=== PATIENT | female | born 1940 | race African-American/Black ===

== ENCOUNTER 2021-02-13 15:52 | Inpatient (IN) | payer MEDICARE, MEDICAID ==
[~2021-02-13] VITALS: Ht 172.7 cm; Wt 99.3 kg
[2021-02-13] MEDS ORDERED: MORPHINE SULFATE 4 MG/ML CPJ (NOT FOR IM USE) IV STA (20:14)
[2021-02-13] MEDS ORDERED: ONDANSETRON HCL 4MG/2ML INJ IV STA (20:14)
[2021-02-13] MEDS ORDERED: SODIUM CHLORIDE 0.9% 1,000 ML IV ONE (20:15)
[2021-02-13 21:42] LABS: BASOPHILS % 0.3 % (0.0-2.0); HEMATOCRIT. 38.8 % (36.0-48.0); LYMPHOCYTES % 14.9 % (20.0-50.0); MEAN CORPUSCULAR HEMOGLOBIN 28.6 pg (28.0-32.0); MEAN CORPUSCULAR VOLUME 85.7 fL (81.0-99.0); MEAN PLATELET VOLUME 7.9 fl (7.4-10.4); MONOCYTES % 12.2 % (2.0-8.0); NEUTROPHILS % 70.6 % (40.0-76.0); PLATELET 358 x1000/uL (130-400); RED BLOOD CELL COUNT 4.53 mill/uL (4.2-5.4); RED CELL DISTRIBUTION WIDTH 13.5 % (11.6-14.6)
[2021-02-13 21:43] LABS: CLARITY URINE CLEAR (CLEAR); COLOR URINE DARK YELLOW (YELLOW); KETONES URINE TRACE (NEGATIVE); LEUKOCYTE ESTERASE URINE 1+ (NEGATIVE); NITRITE URINE NEGATIVE (NEGATIVE); OCCULT BLOOD URINE NEGATIVE (NEGATIVE); PROTEIN URINE 2+ (NEGATIVE); SPECIFIC GRAVITY URINE 1.018 (1.005-1.030)
[2021-02-13 21:47] LABS: CHLORIDE 98 mEq/L (98-107)
[2021-02-13] MEDS ORDERED: MORPHINE SULFATE 2 MG/ML CPJ (NOT FOR IM USE) IV STA (21:48)
[2021-02-13 21:51] LABS: INR 1.1; PROTHROMBIN TIME 11.3 sec (9.6-11.0)
[2021-02-13] MEDS ORDERED: CEFTRIAXONE 1 G PREMIX 50 ML IV SCH (23:15)
[2021-02-14] MEDS ORDERED: ENOXAPARIN 80MG/0.8ML SYR SUBCUT SCH (00:15)
[2021-02-14 09:20] VITALS: BP 138/63
[2021-02-14] MEDS ORDERED: HYDROCODONE/ACETAMINOPHEN 5/325MG TABLET PO PRN (09:45)
[2021-02-14] MEDS ORDERED: MAGNESIUM/ALUMINUM HYDROXIDE/SIMETHICONE 30ML UDC PO PRN (09:45)
[2021-02-14] MEDS ORDERED: CLONIDINE 0.1MG TABLET PO PRN (09:45)
[2021-02-14] MEDS ORDERED: IPRATROPIUM/ALBUTEROL 0.5-3(2.5)MG/3ML NEB HHN PRN (09:45)
[2021-02-14] MEDS ORDERED: DOCUSATE SODIUM 100MG CAPSULE PO PRN (09:45)
[2021-02-14] MEDS ORDERED: ACETAMINOPHEN 325MG TABLET PO PRN (09:45)
[2021-02-14 12:00] VITALS: BP 158/56
[2021-02-14] MEDS ORDERED: CEFTRIAXONE 1,000 MG in DEXTROSE 5% WATER 50 ML IV SCH (12:00)
[2021-02-14] MEDS: OMEPRAZOLE 20MG CAPSULE EXTENDED RELEASE PO SCH (13:14)
[2021-02-14] MEDS: ONDANSETRON HCL 4MG/2ML INJ IV PRN (14:03)
[2021-02-14 16:00] VITALS: BP 121/55
[2021-02-14 20:00] VITALS: BP 143/71
[2021-02-14] MEDS: ENOXAPARIN 80MG/0.8ML SYR SUBCUT SCH (21:05)
[2021-02-14 21:51] LABS: CLARITY URINE CLEAR (CLEAR); COLOR URINE DARK YELLOW (YELLOW); KETONES URINE TRACE (NEGATIVE); LEUKOCYTE ESTERASE URINE TRACE (NEGATIVE); NITRITE URINE NEGATIVE (NEGATIVE); OCCULT BLOOD URINE NEGATIVE (NEGATIVE); PH URINE 5.5 (4.5-8.0); PROTEIN URINE 2+ (NEGATIVE); SPECIFIC GRAVITY URINE 1.027 (1.005-1.030)
[2021-02-15] VITALS: BP 114/63
[2021-02-15 04:00] VITALS: BP 158/56
[2021-02-15] MEDS: OMEPRAZOLE 20MG CAPSULE EXTENDED RELEASE PO SCH (06:23)
[2021-02-15 06:57] LABS: CHLORIDE 99 mEq/L (98-107)
[2021-02-15 07:08] LABS: LDL CHOLESTEROL 92 mg/dL (5-100); PHOSPHORUS 3.2 mg/dL (2.5-4.9)
[2021-02-15 07:09] LABS: HDL CHOLESTEROL 46 mg/dL (40-59)
[2021-02-15 07:32] LABS: BASOPHILS % 0.4 % (0.0-2.0); EOSINOPHILS % 1.7 % (0.0-5.0); LYMPHOCYTES % 12.6 % (20.0-50.0); MEAN CORPUSCULAR HEMOGLOBIN 27.8 pg (28.0-32.0); MEAN CORPUSCULAR VOLUME 86.1 fL (81.0-99.0); MEAN PLATELET VOLUME 8.5 fl (7.4-10.4); MONOCYTES % 12.6 % (2.0-8.0); NEUTROPHILS % 72.7 % (40.0-76.0); PLATELET 331 x1000/uL (130-400); RED BLOOD CELL COUNT 3.95 mill/uL (4.2-5.4); RED CELL DISTRIBUTION WIDTH 13.2 % (11.6-14.6)
[2021-02-15 08:00] VITALS: BP 124/83
[2021-02-15] MEDS ORDERED: ENOXAPARIN 40MG/0.4ML SYR SUBCUT SCH (09:00)
[2021-02-15] MEDS: ENOXAPARIN 80MG/0.8ML SYR SUBCUT SCH ×2 (09:09→20:56)
[2021-02-15 10:47] LABS: BG BASE EXCESS 4.1 mmol/L (-2.0-2.0); BG CARBOXYHEMOGLOBIN 0.7 % (0.5-1.5); BG DEOXYHEMOGLOBIN 10.8 % (0.0-5.0); BG FRACTION INSPIRED OXYGEN 21; BG METHEMOGLOBIN 0.3 % (0.0-1.5); BG OXYGEN SATURATION 89.1 % (92.0-98.5); BG OXYHEMOGLOBIN 88.2 % (94.0-97.0); BG PCO2 39.6 mmHg (35.0-45.0); BG PH 7.468 (7.350-7.450); BG PO2 55.4 mmHg (75.0-100.0); BG SAMPLE SITE LEFT BRACHIAL; BG TOTAL HEMOGLOBIN 11.9 g/dL (12.0-18.0); BG VENT MODE ROOM AIR
[2021-02-15 12:00] VITALS: BP 135/61
[2021-02-15] MEDS: ONDANSETRON HCL 4MG/2ML INJ IV PRN (13:32)
[2021-02-15] MEDS: CEFTRIAXONE 1,000 MG in DEXTROSE 5% WATER 50 ML IV SCH (13:32)
[2021-02-15 16:00] VITALS: BP 143/70
[2021-02-15] MEDS ORDERED: LACTULOSE 20G/30ML UDC PO NR (17:00)
[2021-02-15] MEDS ORDERED: NALOXONE HCL 0.4MG/ML VIAL IV PRN (17:15)
[2021-02-15 20:00] VITALS: BP 144/62
[2021-02-16] VITALS: BP 128/65
[2021-02-16 04:00] VITALS: BP 147/62
[2021-02-16] MEDS: OMEPRAZOLE 20MG CAPSULE EXTENDED RELEASE PO SCH (06:21)
[2021-02-16 07:25] LABS: BASOPHILS % 0.4 % (0.0-2.0); EOSINOPHILS % 1.3 % (0.0-5.0); HEMATOCRIT. 35.4 % (36.0-48.0); HEMOGLOBIN. 11.7 g/dL (12.0-16.0); LYMPHOCYTES % 11.6 % (20.0-50.0); MEAN CORPUSCULAR HEMOGLOBIN 28.5 pg (28.0-32.0); MEAN CORPUSCULAR VOLUME 85.9 fL (81.0-99.0); MEAN PLATELET VOLUME 8.7 fl (7.4-10.4); MONOCYTES % 13.1 % (2.0-8.0); NEUTROPHILS % 73.6 % (40.0-76.0); PLATELET 340 x1000/uL (130-400); RED BLOOD CELL COUNT 4.12 mill/uL (4.2-5.4); RED CELL DISTRIBUTION WIDTH 13.3 % (11.6-14.6)
[2021-02-16 07:27] LABS: CHLORIDE 98 mEq/L (98-107)
[2021-02-16 08:19] VITALS: BP 147/64
[2021-02-16] MEDS: ENOXAPARIN 80MG/0.8ML SYR SUBCUT SCH (09:57)
[2021-02-16] MEDS: DOCUSATE SODIUM 100MG CAPSULE PO SCH (09:57)
[2021-02-16 11:56] VITALS: BP 132/74
[2021-02-16] MEDS: CEFTRIAXONE 1,000 MG in DEXTROSE 5% WATER 50 ML IV SCH (13:21)
[2021-02-16] MEDS: ONDANSETRON HCL 4MG/2ML INJ IV PRN (13:21)
[2021-02-16 16:00] VITALS: BP 132/74
[2021-02-16 20:00] VITALS: BP 131/78
[2021-02-16] MEDS: FAMOTIDINE 20MG TABLET PO SCH (21:08)
[2021-02-16] MEDS: ENOXAPARIN 100MG/ML SYR SUBCUT SCH (21:08)
[2021-02-16] MEDS ORDERED: METHIMAZOLE 5MG TABLET PO SCH (23:00)
[2021-02-17] VITALS: BP 118/62
[2021-02-17 04:00] VITALS: BP 142/61
[2021-02-17 07:19] LABS: BASOPHILS % 0.3 % (0.0-2.0); EOSINOPHILS % 1.6 % (0.0-5.0); HEMATOCRIT. 36.2 % (36.0-48.0); HEMOGLOBIN. 11.8 g/dL (12.0-16.0); LYMPHOCYTES % 11.1 % (20.0-50.0); MEAN CORPUSCULAR HEMOGLOBIN 27.8 pg (28.0-32.0); MEAN CORPUSCULAR VOLUME 85.3 fL (81.0-99.0); MEAN PLATELET VOLUME 8.1 fl (7.4-10.4); MONOCYTES % 14.4 % (2.0-8.0); NEUTROPHILS % 72.6 % (40.0-76.0); PLATELET 392 x1000/uL (130-400); RED BLOOD CELL COUNT 4.24 mill/uL (4.2-5.4); RED CELL DISTRIBUTION WIDTH 13.7 % (11.6-14.6)
[2021-02-17 07:27] LABS: CHLORIDE 95 mEq/L (98-107)
[2021-02-17 07:44] LABS: CORTISOL 35.8 ucg/dL
[2021-02-17 07:57] LABS: VITAMIN B12 SERUM > 2000.0 pg/mL (211-911)
[2021-02-17 08:00] VITALS: BP 140/63
[2021-02-17] MEDS: FAMOTIDINE 20MG TABLET PO SCH ×2 (08:40→21:05)
[2021-02-17] MEDS: DOCUSATE SODIUM 100MG CAPSULE PO SCH (08:40)
[2021-02-17] MEDS: METHIMAZOLE 5MG TABLET PO SCH ×2 (08:41→18:11)
[2021-02-17] MEDS: ENOXAPARIN 100MG/ML SYR SUBCUT SCH ×2 (08:41→21:06)
[2021-02-17 12:15] VITALS: BP 129/69
[2021-02-17] MEDS: CEFTRIAXONE 1,000 MG in DEXTROSE 5% WATER 50 ML IV SCH (12:57)
[2021-02-17 16:20] VITALS: BP 134/67
[2021-02-17 20:00] VITALS: BP 155/69
[2021-02-18 00:28] VITALS: BP 156/74
[2021-02-18 04:00] VITALS: BP 139/74
[2021-02-18 06:45] LABS: BASOPHILS % 0.3 % (0.0-2.0); HEMATOCRIT. 35.4 % (36.0-48.0); HEMOGLOBIN. 11.6 g/dL (12.0-16.0); LYMPHOCYTES % 13.4 % (20.0-50.0); MEAN CORPUSCULAR HEMOGLOBIN 27.8 pg (28.0-32.0); MEAN CORPUSCULAR VOLUME 84.7 fL (81.0-99.0); MEAN PLATELET VOLUME 8.4 fl (7.4-10.4); MONOCYTES % 13.5 % (2.0-8.0); NEUTROPHILS % 71.8 % (40.0-76.0); PLATELET 382 x1000/uL (130-400); RED BLOOD CELL COUNT 4.18 mill/uL (4.2-5.4); RED CELL DISTRIBUTION WIDTH 13.3 % (11.6-14.6)
[2021-02-18 07:07] LABS: CHLORIDE 93 mEq/L (98-107)
[2021-02-18 08:00] VITALS: BP 143/70
[2021-02-18] MEDS ORDERED: LEVO500T89 MT (09:00)
[2021-02-18] MEDS ORDERED: APIX5TAB MT (09:00)
[2021-02-18] MEDS ORDERED: DOCU-150 PO (09:00)
[2021-02-18] MEDS ORDERED: TAP5 PO (09:00)
[2021-02-18 09:09] LABS: A/G RATIO 0.7 (0.7-1.7); ALBUMIN 2.8 g/dL (2.9-4.4); ALPHA-1-GLOBULIN 0.5 g/dL (0.0-0.4); ALPHA-2-GLOBULIN 0.9 g/dL (0.4-1.0); BETA GLOBULIN 1.2 g/dL (0.7-1.3); GAMMA GLOBULINS 1.5 g/dL (0.4-1.8); GLOBULIN TOTAL 4.2 g/dL (2.2-3.9); M-SPIKE Not Observed g/dL (Not Observed); VITAMIN D 25-OH 31.7 ng/mL (30.0-100.0)
[2021-02-18] MEDS: DOCUSATE SODIUM 100MG CAPSULE PO SCH (09:46)
[2021-02-18] MEDS: METHIMAZOLE 5MG TABLET PO SCH (09:46)
[2021-02-18] MEDS: FAMOTIDINE 20MG TABLET PO SCH (09:46)
[2021-02-18] MEDS: ENOXAPARIN 100MG/ML SYR SUBCUT SCH (09:47)
[2021-02-18] MEDS ORDERED: NA PHOS,M-B/NA PHOS,DI-BA ENEMA 118ML PR NR (10:45)
[2021-02-18] MEDS: CEFTRIAXONE 1,000 MG in DEXTROSE 5% WATER 50 ML IV SCH (12:00)
== END 2021-02-18 13:30 | disposition home or self-care (01) | DRG 175 ==
LOC: ER 15:52 → 6WST 02-14 00:23 → ENRESERV 02-14 07:06
PROVIDERS: ADMIT Internal Medicine; ATTEND Internal Medicine
DX: I26.99 Other pulmonary embolism without acute cor pulmonale (principal); J18.9 Pneumonia, unspecified organism; E43 Unspecified severe protein-calorie malnutrition; R18.8 Other ascites; C78.7 Secondary malignant neoplasm of liver and intrahepatic bile duct; N30.00 Acute cystitis without hematuria; J44.0 Chronic obstructive pulmonary disease with (acute) lower respiratory infection; C78.89 Secondary malignant neoplasm of other digestive organs; I10 Essential (primary) hypertension; D64.9 Anemia, unspecified; E05.90 Thyrotoxicosis, unspecified without thyrotoxic crisis or storm; R73.9 Hyperglycemia, unspecified; Z60.2 Problems related to living alone; Z20.822 Contact with and (suspected) exposure to COVID-19; F17.210 Nicotine dependence, cigarettes, uncomplicated; K59.00 Constipation, unspecified; K86.9 Disease of pancreas, unspecified; K76.89 Other specified diseases of liver; Z80.9 Family history of malignant neoplasm, unspecified; Z85.038 Personal history of other malignant neoplasm of large intestine; Z90.710 Acquired absence of both cervix and uterus; Z98.42 Cataract extraction status, left eye; Z68.33 Body mass index [BMI] 33.0-33.9, adult
CPT/HCPCS: 36415; 36600; 71045; 74177; 80048; 80053; 80061; 80076; 81003; 82105; 82306; 82375; 82378; 82533; 82607; 82746; 82805; 83036; 83520; 83735; 83880; 84100; 84134; 84155; 84165; 84439; 84443; 84481; 85025; 86301; 87426; 93005; 93306; 93970; 97162; 97166; 99291; J0696; J1650; J2270; J2405; J7030; J7060